=== PATIENT | female | born 1975 | race Two or more races ===

== ENCOUNTER 2017-09-27 21:29 | Emergency (ER) | payer OTHER ==
[~2017-09-27] VITALS: Ht 152.4 cm; Wt 83.9 kg
[2017-09-27] MEDS ORDERED: Lidocaine 1% Plain 30 ml INJ ONE (22:45)
[2017-09-27] MEDS ORDERED: Tetanus/Diptheria/Pertussis Vaccine 0.5ml Syr IM ONE (22:45)
--- NOTE | 2017-09-27 23:12 | Emergency Room Report ---
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 Patient states she accidentally stabbed left thumb with tip of knife. Unknown last tetanus. Denies reduced range of motion due to injury or loss of sensation. Allergies: Coded Allergies: No Known Allergies (Unverified , 09/27/17) Patient History Past Medical History: none Past Surgical History: none Pertinent Family History: none Social History: Denies: smoking, alcohol use, drug use Last Menstrual Period: 09/25/17 Now: No Immunizations: UTD Reviewed Nursing Documentation: PMH: Agreed; PSxH: Agreed Nursing Documentation-PMH Past Medical History: No Stated History Review of Systems All Other Systems: negative except mentioned in HPI Physical Exam Vital Signs Date Time Temp Pulse Resp B/P (MAP) Pulse Ox O2 Delivery O2 Flow Rate FiO2 09/27/17 21:57 97.9 78 20 123/79 99 Room Air 97.9 Sp02 EP Interpretation: reviewed, normal General Appearance: normal inspection, well appearing, no apparent distress, alert, GCS 15, non-toxic Head: normocephalic, atraumatic Eyes: bilateral eye PERRL, bilateral eye EOMI ENT: normal ENT inspection, hearing grossly normal, normal pharynx, no angioedema, normal voice, TMs + canals normal, uvula midline, moist mucus membranes Neck: normal inspection, full range of motion, supple, thyroid normal, no meningismus, no bony tend Respiratory: normal inspection, lungs clear, normal breath sounds, no rhonchi, no respiratory distress, no retraction, no accessory muscle use, no wheezing, speaking full sentences Cardiovascular #1: regular rate, rhythm, no edema, no JVD, normal capillary refill Gastrointestinal: normal inspection, normal bowel sounds, non tender, soft, no mass, no peritonitis, non-distended, no guarding, no hernia, no pulsatile mass Genitourinary: no CVA tenderness Musculoskeletal: other - Left thumb: base with palmar aspect 1 cm linear lac. No FB. Sensation and stretnght in all directions of thumb is normal Neurologic: normal inspection, alert, oriented x3, responsive, pulmonologist intensivist III-XII nml as tested, motor strength/tone normal, cerebellar normal, normal gait, speech normal Psychiatric: normal inspection, judgement/insight normal, mood/affect normal, no suicidal/homicidal ideation, no delusions Skin: normal inspection, normal color, no rash Lymphatic: normal inspection, no adenopathy Procedures Laceration/Wound Repair Laceration/Wound Repair : Consent: Verbal Wound Location: upper extremity Wound's Depth, Shape: superficial Wound Explored: clean Betadine Prep?: Yes Anesthesia: 1% Lidocaine Wound Debrided: minimal Suture Size/Type: 5:0 Number of Sutures: 2 Layer Closure?: No Sterile Dressing Applied?: Yes Splint Applied?: No Sling Applied?: No Patient Tolerated: Well Complications: None Medical Decision Making Diagnostic Impression: Primary Impression: Laceration ER Course Laceration to base of left thumb Neurovascularly intact, no reduced range of motion. Low suspicion for tendon injury Repaired in ER, tetanus updated advised return in 5-7 days for suture removal ER course: Patient has remained stable during ED stay. Disposition: Patient is to be discharged to home. Patient is instructed to follow up Er in 5-7 days for suture removal Strict return precautions discussed with patient such as fever, chills, worsening/severe pain, nausea, vomiting, which may indicate severe illness. Patient verbalizes understanding and agrees with plan. Please note that this Emergency Department Report was dictated using [employer] talent officer technology software, occasionally this can lead to erroneous entry secondary to interpretation by the dictation equipment Last Vital Signs Date Time Temp Pulse Resp B/P (MAP) Pulse Ox O2 Delivery O2 Flow Rate FiO2 09/27/17 21:57 97.9 78 20 123/79 99 Room Air 97.9 Status: improved Disposition: HOME, SELF-CARE SINDHU ALMONTE M.D. Sep 27, 2017 23:12
[2017-09-27 23:40] VITALS: BP_SYST 122; BP_SYST 123; BP_DIAS 77; BP_DIAS 79
== END 2017-09-27 23:40 | disposition home or self-care (01) ==
LOC: EMR 22:30
DX: S61.012A Laceration without foreign body of left thumb without damage to nail, initial encounter (principal); W26.0XXA Contact with knife, initial encounter; Y92.89 Other specified places as the place of occurrence of the external cause; Y99.0 Civilian activity done for income or pay; Z23 Encounter for immunization
CPT/HCPCS: 12001; 90471; 90715; 99284; J2001

== ENCOUNTER 2017-10-04 18:45 | Emergency (ER) | payer OTHER ==
[~2017-10-04] VITALS: Ht 152.4 cm; Wt 81.6 kg
--- NOTE | 2017-10-04 19:09 | Emergency Room Report ---
History of Present Illness General Chief Complaint: Wound Recheck/Suture Removal Source: Patient Present Illness HPI 42 yo female patient presents to ER for removal of sutures from left thumb. Reports cut thumb with knife, 2 sutures placed in ER 1 week ago. Reports wound healing well, denies drainage. Denies pain with ambulation or numbness in finger. Denies joint pain or swelling. Denies fever, chest pain, SOB, rash. Allergies: Coded Allergies: No Known Allergies (Unverified , 09/27/17) Patient History Past Medical History: see triage record Last Menstrual Period: 09/28/17 Reviewed Nursing Documentation: PMH: Agreed; PSxH: Agreed Nursing Documentation-PMH Past Medical History: No Stated History Review of Systems All Other Systems: negative except mentioned in HPI Physical Exam Vital Signs Date Time Temp Pulse Resp B/P (MAP) Pulse Ox O2 Delivery O2 Flow Rate FiO2 10/04/17 18:55 98.5 63 18 113/70 95 Room Air 98.4 Sp02 EP Interpretation: reviewed, normal General Appearance: well appearing, no apparent distress, alert, GCS 15, non- toxic Head: normocephalic, atraumatic Eyes: bilateral eye normal inspection, bilateral eye PERRL ENT: hearing grossly normal, normal pharynx, no angioedema, normal voice, uvula midline, moist mucus membranes Neck: full range of motion Respiratory: lungs clear, normal breath sounds, no rhonchi, no respiratory distress, no accessory muscle use, no wheezing, speaking full sentences Cardiovascular #1: regular rate, rhythm, no edema Musculoskeletal: back normal, digits/nails normal, gait/station normal, normal range of motion, non-tender, other - NVI Neurologic: alert, oriented x3, responsive, motor strength/tone normal, sensory intact Psychiatric: mood/affect normal Skin: laceration - left thumb: 2 sutures, no surrounding erythema, no edema, scabbing present, no warmth to touch Medical Decision Making PA Attestation Dr. Vyas is my supervising Physician whom patient management has been discussed with. Diagnostic Impression: Primary Impression: Encounter for removal of sutures ER Course Pt. presents to the ED for removal of sutures. Ddx considered but are not limited to cellulitis, abscess, wound recheck. No joint edema, no warmth to touch, no edema, Low suspicion for septic joint. Vital signs: are WNL, pt. is afebrile ORDERS: none required at this time. ED INTERVENTIONS: Wound has no signs of infection, no edema, TTP, sensation is intact to light touch. 2 sutures remove from thumb, no complication, patient tolerated procedure well, no bleeding following suture removal. Patient is resting comfortably, in no acute distress, non-toxic appearing. Keep wound clean and dry. Do not scratch or itch scab. DISCHARGE: Patient instructed to take Tylenol OTC for pain medication. At this time pt. is stable for d/c to home.Patient resting comfortably, in no acute distress, nontoxic appearing. Will provide printed patient care instructions and any necessary prescriptions. Care plan and follow up instructions have been discussed with the patient prior to discharge. Patient instructed to follow-up with primary care provider for further treatment and referral. Patient questions asked and answered. ER precautions given. Patient instructed to return to ER immediately for any new or worsening of symptoms including but not limited to fever, worsening of pain symptoms. Last Vital Signs Date Time Temp Pulse Resp B/P (MAP) Pulse Ox O2 Delivery O2 Flow Rate FiO2 10/04/17 18:55 98.5 63 18 113/70 95 Room Air 98.4 Disposition: HOME, SELF-CARE Condition: Stable Patient Instructions: Wound Check Additional Instructions: Followup with primary care provider in 3 -5 days. Keep area clean and dry. Do not pick or scratch scab. Take medications as directed. Patient questions asked and answered. ER precautions given, patient instructed to return to ER immediately for any new or worsening of symptoms. Ernie Carreno Oct 04, 2017 19:09
[2017-10-04 19:13] VITALS: BP 113/70
[2017-10-04 19:35] VITALS: BP 113/70
== END 2017-10-04 19:35 | disposition home or self-care (01) ==
LOC: EMR 19:20
DX: Z48.02 Encounter for removal of sutures (principal)
CPT/HCPCS: 99281